=== PATIENT | male | born 1990 | race American Indian/Alaskan Native ===

== ENCOUNTER 2017-03-21 05:25 | Emergency (ER) | payer SELFPAY ==
[2017-03-21 05:38] VITALS: BP 125/80; PULSE 80; RESP 16; TEMP 97.5; O2SAT 93
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
== END 2017-03-21 06:00 | disposition home or self-care (01) ==
DX: S01.511A Laceration without foreign body of lip, initial encounter (principal); Z87.891 Personal history of nicotine dependence; V43.52XA Car driver injured in collision with other type car in traffic accident, initial encounter; Y92.410 Unspecified street and highway as the place of occurrence of the external cause; Y99.8 Other external cause status; Y93.89 Activity, other specified